=== PATIENT | male | born 1965 | race Caucasian/White ===

== ENCOUNTER → 2016-11-28 | Outpatient (CLI) | payer OTHER ==
[~2016-11-28] MED LIST: ADVIN50/60 INH; ALBUAER19 INH; ATOR-26 PO; CETI10TA84 PO; FLNIN NAE; FOLI1TAB7 PO; GLCSR/500 PO; LISI5TAB3 PO; MAGN500T4 PO; METH2.5T PO; MONT1TAB3 PO; PRLSR20 PO
[2016-11-28 13:46] LABS: CHOLESTEROL/HDL RATIO 5.7
== END | disposition home or self-care (01) ==
LOC: C.LABPVFM 09:03
PROVIDERS: ATTEND Internal Medicine
DX: E78.5 Hyperlipidemia, unspecified (principal)

== ENCOUNTER → 2017-04-17 | Outpatient (CLI) | payer OTHER | END | disposition home or self-care (01) | LOC: C.LABPVFM 08:06 | PROVIDERS: ATTEND Internal Medicine Rheumatology | DX: R79.89 Other specified abnormal findings of blood chemistry (principal) ==

== ENCOUNTER 2017-07-20 18:08 | Emergency (ER) | payer OTHER ==
[~2017-07-20] VITALS: Ht 170.2 cm; Wt 74.1 kg
[2017-07-20 18:19] VITALS: TEMP 36.8; Ht 170.2 cm; Wt 74.1 kg
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
[2017-07-20] MEDS ORDERED: FLUT0.15 NAE (19:29)
[2017-07-20] MEDS ORDERED: TPRSR/25 PO (19:29)
[2017-07-20] MEDS ORDERED: DILT120C9 PO (19:29)
[2017-07-20] MEDS ORDERED: PRVHFAIN INH (19:29)
[2017-07-20] MEDS ORDERED: ATRIN INH (19:29)
[2017-07-20] MEDS ORDERED: IPRA0.03 NAE (19:29)
[2017-07-20] MEDS ORDERED: ALBINS NEB (19:29)
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
[2017-07-20] MEDS ORDERED: IBUPROFEN 800 MG TAB PO STA (20:26)
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
[2017-07-20 21:28] VITALS: BP 135/90; PULSE 74; O2SAT 99
== END 2017-07-20 21:28 | disposition home or self-care (01) ==
LOC: C.EDB 18:10 → C.EDC 21:28
DX: M54.5 Low back pain (principal); M54.2 Cervicalgia; D64.9 Anemia, unspecified; E11.9 Type 2 diabetes mellitus without complications; E78.5 Hyperlipidemia, unspecified; I10 Essential (primary) hypertension; Z79.84 Long term (current) use of oral hypoglycemic drugs

== ENCOUNTER → 2017-08-11 | Outpatient (CLI) | payer OTHER ==
[~2017-08-11] MED LIST changes: +ALBINS NEB; -ALBUAER19 INH; -ATOR-26 PO; +ATRIN INH; +DILT120C9 PO; -FLNIN NAE; +FLUT0.15 NAE; +IPRA0.03 NAE; -LISI5TAB3 PO; -MAGN500T4 PO; +PRVHFAIN INH; +TPRSR/25 PO
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
== END | disposition home or self-care (01) ==
LOC: C.ULTR 12:19
PROVIDERS: ATTEND Internal Medicine
DX: M25.561 Pain in right knee (principal)

== ENCOUNTER → 2017-12-07 | Outpatient (CLI) | payer OTHER ==
[~2017-12-07] MED LIST changes: -FOLI1TAB7 PO; +FOLI1TAB8 PO
--- NOTE | 2017-12-07 11:52 | DIAGNOSTIC IMAGING REPORT ---
TWO VIEW CHEST CLINICAL HISTORY: Asthma. FINDINGS: PA and lateral chest radiographs are compared to study dated 07/25/2016. Correlation is made with chest CT dated 01/23/2011. The heart is top normal for projection. The external contour is within normal limits. There is mild chronic elevation of the right hemidiaphragm. The lungs and pleural spaces are clear. There is no pneumothorax. The bony thorax appears intact. IMPRESSION: No active disease in the chest. Electronically signed by: Stephane Hairston M.D. 12/07/2017 11:51 AM Dictated Date/Time: 12/07/2017 11:50 AM
== END | disposition home or self-care (01) ==
LOC: C.RADBC 11:38
PROVIDERS: ATTEND Family Medicine Adult Medicine
DX: J45.901 Unspecified asthma with (acute) exacerbation (principal)

== ENCOUNTER → 2017-12-22 | Outpatient (CLI) | payer OTHER ==
[2017-12-22 09:03] LABS: HEMOGLOBIN A1C 7.2 % (4.5-5.6)
== END | disposition home or self-care (01) ==
LOC: C.LAB 05:52
PROVIDERS: ATTEND Internal Medicine
DX: E11.9 Type 2 diabetes mellitus without complications (principal); E78.5 Hyperlipidemia, unspecified

== ENCOUNTER → 2018-05-05 | Day surgery (SDC) | payer OTHER ==
[2018-05-03 15:19] VITALS: Ht 170.2 cm; Wt 70.5 kg
[~2018-05-05] VITALS: Ht 170.2 cm; Wt 70.5 kg
[~2018-05-05] MED LIST changes: +ALBUAER INH; +HYOS1TAB PO; +LIDOCAINE HCL 2% 2 ML VIAL (20MG/ML) ONE; +PROPOFOL IV EMULSION 10 MG/ML 20 ML VIAL ONE; +ROSU5TAB PO; +SODIUM CHLORIDE 0.9% 500ML 500 ML IV ONE; -TPRSR/25 PO
[2018-05-05 12:14] VITALS: TEMP 36.8
--- NOTE | 2018-05-05 12:38 | Endo History and Physical ---
History & Physical Date of Service: May 05, 2018. Chief Complaint: Diarrhea Referring Physician: Dr. Carbone History of Present Illness 53 yo CM who presents for colonoscopy secondary to diarrhea. Past Medical History Atrial Fibrillation, Diabetes, Arthritis, Asthma, Reflux, High Cholesterol, Hypertension Past Surgical History Hx Cardiac Surgery: No Hx Internal Defibrillator: No Hx Pacemaker: No Hx Abdominal Surgery: Yes (ABDOMINAL CYSTS REMOVED, HERNIA REPAIR) Hx of Implantable Prosthesis: No Hx Post-Op Nausea and Vomiting: No Hx Cancer Surgery: No Hx Thoracic Surgery: No Hx Orthopedic: Yes (RIGHT KNEE ARTHROSCOPY) Hx Urinary Tract Surgery: Yes (LITHOTRIPSY) Family History Colon CA, Polyp Social History Smoking Status: Never Smoker Hx Substance Use: No Hx Alcohol Use: No Allergies Coded Allergies: Sulfa Antibiotics (Verified Allergy, Unknown, RASH TO SULFA DRUGS, 05/05/18) Aspirin (Verified Adverse Reaction, Intermediate, EFFECTS HEARING, 05/05/18) Current Medications Reported Home Medications Medications Dose Route/Sig Max Daily Dose Days Date Category Dose Instructions Proventil Hfa (Albuterol Sulfate) 108 Mcg/Act Aer 1-2 Puffs INH Q4 PRN 05/03/18 Reported Levsin (Hyoscyamine Sulfate) 0.125 Mg Tab 0.125 Mg PO TID 05/03/18 Reported Crestor (Rosuvastatin Calcium) 5 Mg Tab 5 Mg PO WK 05/03/18 Reported Ipratropium [place] (Ipratropium [place] (Nasal)) 0.03 % Spr 2 Sprays ARTEM 2-3 X DAILY 07/20/17 Reported Atrovent Hfa (Ipratropium [place]) 200 Puffs/3400 Mcg Aers 2 Puffs INH QID PRN 07/20/17 Reported Diltiazem Hcl Er (Diltiazem Hcl) 120 Mg Cap 120 Mg PO DAILY 07/20/17 Reported Albuterol Sulfate (Albuterol Sulf) 2.5 Mg/3 Ml Nebu 3 Ml NEB Q4H PRN 07/20/17 Reported Ventolin Hfa (Albuterol) 60 Puffs/5400 Mcg Aers 2 Puffs INH Q4H PRN 07/20/17 Reported Flonase Allergy Relief (Fluticasone Propionate (Nasal)) 50 Mcg/Act Spr 2 Sprays ARTEM BID 07/20/17 Reported Metformin HCl ER (Metformin HCl) 500 Mg Tabcr 500 Mg PO BID 11/09/14 Reported Advair Diskus 500/50 60 Dose (Fluticasone Prop/Salmeterol) 1 Ea Aerp 1 Puff INH BID 04/03/13 Reported Prilosec (Omeprazole) 20 Mg Capcr 20 Mg PO BID 04/01/13 Reported Singulair (Montelukast Sodium) 10 Mg Tab 10 Mg PO HS 04/01/13 Reported Methotrexate 2.5 Mg Tab 15 Mg PO WK 04/01/13 Reported TAKE 6 TABLETS EVERY WEDNESDAY Folvite (Folic Acid) 1 Mg Tab 1 Mg PO XWK 04/01/13 Reported TAKE THIS MEDICATION ONCE DAILY WEDNESDAY THRU WEDNESDAY Zyrtec (Cetirizine HCl) 10 Mg Tab 10 Mg PO HS 04/01/13 Reported Vital Signs Weight (Kilograms): 70.45 Height (Feet): 5 Height (Inches): 7 Date Time Temp Pulse Resp B/P (MAP) Pulse Ox O2 Delivery O2 Flow Rate FiO2 05/05/18 12:14 36.8 89 20 156/97 (116) 95 Room Air Physical Exam General Appearance: WD/WN, no apparent distress Respiratory/Chest: Auscultation: breath sounds normal Cardiovascular: Heart Auscultation: RRR Abdomen: Bowel Sounds: normal Inspection & Palpation: soft, non-distended, no tenderness, guarding & rebound Assessment and Plan Assessment: 53 yo CM who presents for colonoscopy secondary to diarrhea. Plan: Proceed with colonoscopy.
--- NOTE | 2018-05-05 13:05 | Discharge Instructions ---
Endoscopy Patient Instructions Date / Procedure(s) Performed May 05, 2018. Colonoscopy Allergy Information Coded Allergies: Sulfa Antibiotics (Verified Allergy, Unknown, RASH TO SULFA DRUGS, 05/05/18) Aspirin (Verified Adverse Reaction, Intermediate, EFFECTS HEARING, 05/05/18) Discharge Date / Findings May 05, 2018. Proctosigmoiditis s/p biopsies Ascending colon polyp Internal hemorrhoids Medication Instructions Stopped Medication(s): Metformin stopped 04/26/18 OK to resume all medications today as prescribed Reported Home Medications Medications Dose Route/Sig Max Daily Dose Days Date Category Dose Instructions Proventil Hfa (Albuterol Sulfate) 108 Mcg/Act Aer 1-2 Puffs INH Q4 PRN 05/03/18 Reported Levsin (Hyoscyamine Sulfate) 0.125 Mg Tab 0.125 Mg PO TID 05/03/18 Reported Crestor (Rosuvastatin Calcium) 5 Mg Tab 5 Mg PO WK 05/03/18 Reported Ipratropium [place] (Ipratropium [place] (Nasal)) 0.03 % Spr 2 Sprays ARTEM 2-3 X DAILY 07/20/17 Reported Atrovent Hfa (Ipratropium [place]) 200 Puffs/3400 Mcg Aers 2 Puffs INH QID PRN 07/20/17 Reported Diltiazem Hcl Er (Diltiazem Hcl) 120 Mg Cap 120 Mg PO DAILY 07/20/17 Reported Albuterol Sulfate (Albuterol Sulf) 2.5 Mg/3 Ml Nebu 3 Ml NEB Q4H PRN 07/20/17 Reported Ventolin Hfa (Albuterol) 60 Puffs/5400 Mcg Aers 2 Puffs INH Q4H PRN 07/20/17 Reported Flonase Allergy Relief (Fluticasone Propionate (Nasal)) 50 Mcg/Act Spr 2 Sprays ARTEM BID 07/20/17 Reported Metformin HCl ER (Metformin HCl) 500 Mg Tabcr 500 Mg PO BID 11/09/14 Reported Advair Diskus 500/50 60 Dose (Fluticasone Prop/Salmeterol) 1 Ea Aerp 1 Puff INH BID 04/03/13 Reported Prilosec (Omeprazole) 20 Mg Capcr 20 Mg PO BID 04/01/13 Reported Singulair (Montelukast Sodium) 10 Mg Tab 10 Mg PO HS 04/01/13 Reported Methotrexate 2.5 Mg Tab 15 Mg PO WK 04/01/13 Reported TAKE 6 TABLETS EVERY WEDNESDAY Folvite (Folic Acid) 1 Mg Tab 1 Mg PO 6XWK 04/01/13 Reported TAKE THIS MEDICATION ONCE DAILY WEDNESDAY THRU WEDNESDAY Zyrtec (Cetirizine HCl) 10 Mg Tab 10 Mg PO HS 04/01/13 Reported Provider Instructions Activity Restrictions - No exercising or heavy lifting for 24 hours. - Do not drink alcohol the day of the procedure. - Do not drive a car or operate machinery until the day after the procedure. - Do not make any important decisions or sign important papers in 24 hours after the procedure. Following Day: - Return to full activity which may include returning to work/school. Diet Start your diet with liquids and light foods (jello, soup, juice, toast). Then eat your usual diet if not nauseated. Treatment For Common After Affects For mild abdominal pain, bloating, or excessive gas: - Rest - Eat lightly - Lie on right side Follow-Up Information Follow-up with Dr. Carbone as scheduled Anesthesia Information What You Should Know You have had a procedure that required some medicine to reduce anxiety and discomfort. This treatment is called moderate sedation. After receiving the treatment, you may be sleepy, but you will be able to breathe on your own. The effects of the treatment may last for several hours. Follow these instructions along with Activity/Diet recommendations noted above: * Do NOT do anything where dizziness or clumsiness would be dangerous. * Rest quietly at home today, then you can be up and about tomorrow. * Have a responsible person stay with you the rest of today. * You may have had an I.V. today. If so, you may take the dressing off later today. Recommendations Call your doctor if: * Trouble breathing * Continuous vomiting for more than 24 hours * Temperature above 101 degrees * Severe abdominal pain or bloating * Pain not relieved by pain medicine ordered * There is increased drainage or redness from any incision * A large amount of rectal bleeding greater than 2-3 tablespoons. (If you had a polyp/s removed or have hemorrhoids, a small amount of blood - from the rectum is to be expected.) * You have any unanswered questions or concerns. IN THE EVENT OF A SERIOUS EMERGENCY, GO TO THE NEAREST EMERGENCY ROOM Your discharge instructions were prepared by provider Jose Guo. Patient Instructions Signature Page Mario Jonesn Patient (or Guardian) Signature/Date: I have read and understand the instructions given to me by my caregivers. Caregiver/RN/Doctor Signature/Date: The above-named patient and/or guardian has received patient instructions on this date. + Original Patient Signature Page (only) stays with chart. Please make copy for patient.
--- NOTE | 2018-05-05 13:09 | GI REPORT ---
Patient Name: Mario Acosta Procedure Date: 05/05/2018 12:14 PM Date of : 1965 Admit Type: Outpatient Age: 53 Gender: Male Attending MD: Jose Guo DO Procedure: Colonoscopy Providers: Jose Guo DO Referring MD: Aleena Hamilton Indications: Chronic diarrhea Medicines: Monitored Anesthesia Care Complications: No immediate complications. Estimated Blood Loss: Estimated blood loss: none. Procedure: Pre-Anesthesia Assessment: - Prior to the procedure, a History and Physical was performed, and patient medications and allergies were reviewed. The patient's tolerance of previous anesthesia was also reviewed. The risks and benefits of the procedure and the sedation options and risks were discussed with the patient. All questions were answered, and informed consent was obtained. Prior Anticoagulants: The patient has taken no previous anticoagulant or antiplatelet agents. ASA Grade Assessment: III - A patient with severe systemic disease. After reviewing the risks and benefits, the patient was deemed in satisfactory condition to undergo the procedure. After I obtained informed consent, the scope was passed under direct vision. Throughout the procedure, the patient's blood pressure, pulse, and oxygen saturations were monitored continuously. The On-site loaner was introduced through the anus and advanced to the terminal ileum. The colonoscopy was performed without difficulty. The patient tolerated the procedure well. The quality of the bowel preparation was good. The terminal ileum, ileocecal valve, appendiceal orifice, and rectum were photographed. Findings: The perianal and digital rectal examinations were normal. A 5 mm polyp was found in the ascending colon. The polyp was sessile. The polyp was removed with a hot snare. Resection and retrieval were complete. A localized area of moderately altered vascular, congested and erythematous mucosa was found in the rectum and in the sigmoid colon. Biopsies were taken with a cold forceps for histology. Non-bleeding internal hemorrhoids were found during retroflexion. The hemorrhoids were small. Fluid aspiration for stool studies was performed in the entire colon. Impression: - One 5 mm polyp in the ascending colon, removed with a hot snare. Resected and retrieved. - Altered vascular, congested and erythematous mucosa in the rectum and in the sigmoid colon. Biopsied. - Non-bleeding internal hemorrhoids. - Fluid aspiration was performed. Recommendation: - Resume previous diet. - Continue present medications. - Repeat colonoscopy for surveillance based on pathology results. - Return to primary care physician as previously scheduled. Jose G. Brant, DO 05/05/2018 1:08:57 PM This report has been signed electronically. Note Initiated On: 05/05/2018 12:14 PM Number of Addenda: 0 I attest to the content of the Intraoperative Record and orders documented therein, exceptions below {[id number]}
[2018-05-05 13:38] VITALS: BP 137/91; PULSE 78; O2SAT 97
--- NOTE | 2018-05-05 13:59 | Anesthesiology Progress Note ---
Anesthesia Post Op Note Date & Time May 05, 2018 at 13:59 Vital Signs Pain Intensity: 0 Vital Signs Past 12 Hours Date Time Temp Pulse Resp B/P (MAP) Pulse Ox O2 Delivery O2 Flow Rate FiO2 05/05/18 13:38 78 16 137/91 (106) 97 Room Air 05/05/18 13:23 86 18 138/92 (107) 96 Room Air 05/05/18 13:08 85 16 111/75 (87) 98 Room Air 05/05/18 12:14 36.8 89 20 156/97 (116) 95 Room Air Notes Mental Status: alert / awake / arousable, participated in evaluation Pt Amnestic to Procedure: Yes Nausea / Vomiting: adequately controlled Pain: adequately controlled Airway Patency, RR, SpO2: stable & adequate BP & HR: stable & adequate Hydration State: stable & adequate Anesthetic Complications: no major complications apparent
== END | disposition home or self-care (01) ==
LOC: C.GI 11:44
PROVIDERS: ATTEND Internal Medicine
DX: K52.9 Noninfective gastroenteritis and colitis, unspecified (principal); D12.2 Benign neoplasm of ascending colon; K31.89 Other diseases of stomach and duodenum; K64.8 Other hemorrhoids; I48.91 Unspecified atrial fibrillation; E11.9 Type 2 diabetes mellitus without complications; J45.909 Unspecified asthma, uncomplicated; K21.9 Gastro-esophageal reflux disease without esophagitis; E78.00 Pure hypercholesterolemia, unspecified; Z79.899 Other long term (current) drug therapy